=== PATIENT | female | born 1950 | race Caucasian/White ===

== ENCOUNTER 2019-03-04 12:13 | Emergency (ER) | payer MEDICARE ==
[~2019-03-04] VITALS: Ht 172.7 cm; Wt 75.9 kg
--- NOTE | 2019-03-04 13:00 | NUR ---
PT REPORTS URGENCY AND FREQUENCY HAS BEEN DRINKING CRANBERRY JUICE AND THOUGHT IT HAD GONE AWAY.
[2019-03-04 13:08] LABS: CLARITY,URINE TURBID (Clear); COLOR,URINE YELLOW (Yellow); GLUCOSE, URINE NEGATIVE (Neg); KETONES,URINE NEGATIVE (Neg); LEUKOCYTE ESTERASE ,URINE LARGE (Neg); NITRITES, URINE POSITIVE (Neg); OCCULT BLOOD,URINE LARGE (Neg); PROTEIN,URINE 100 mg/dl (Neg); UROBILINOGEN,URINE 0.2 E.U/dL (0.2-1.0)
[2019-03-04 13:10] LABS: UA COLLECTION TYPE CLN CATCH MIDSTREAM
[2019-03-04 13:16] LABS: BACTERIA,URINE 3+ /HPF (Neg); RBC,URINE 0-2 /HPF (0-2); SQUAMOUS EPITHELIAL CELL,UR FEW /LPF (FEW); WBC,URINE TNTC /HPF (0-4)
[2019-03-04] MEDS ORDERED: CEPH-572 PO (13:29)
[2019-03-04] MEDS ORDERED: CefTRIAXone 250MG IM Kit w/LIDOcaine IM ONE (13:30)
[2019-03-04 13:40] VITALS: BP 131/85
== END 2019-03-04 13:44 | disposition home or self-care (01) ==
LOC: ER 12:14
DX: N39.0 Urinary tract infection, site not specified (principal); Z88.0 Allergy status to penicillin; Z88.2 Allergy status to sulfonamides; Z88.1 Allergy status to other antibiotic agents
CPT/HCPCS: 81001; 87077; 87088; 87186; 96372; 99283; J0696